=== PATIENT | female | born 1995 | race Caucasian/White ===

== ENCOUNTER 2023-02-26 23:23 | Inpatient (IN) ==
[2023-02-27] MEDS ORDERED: Lactated Ringers 1000 ml BAG 1,000 ML IV ONE (00:05)
[2023-02-27] MEDS ORDERED: Buffered Lidocaine 1% SYRIN 1 ml INTRADERM ONE (00:05)
[2023-02-27] MEDS ORDERED: Calcium Carb (TUMS) 500 mg CHEW TAB PO PRN (00:26)
[2023-02-27 00:47] LABS: Urine Benzodiazepine Screen None Detected (None Detect); Urine Cannabinoids Screen None Detected (None Detect); Urine Opiates Screen None Detected (None Detect)
[2023-02-27] MEDS ORDERED: Lactated Ringers 1000 ml BAG 1,000 ML IV SCH (01:00)
[2023-02-27] MEDS ORDERED: Glycerin ADULT 2.4 gm SUPP PR PRN (04:06)
[2023-02-27] MEDS ORDERED: Witch Hazel PAD JAR TOPICAL PRN (04:06)
[2023-02-27] MEDS ORDERED: Dibucaine 1% OINT 28.35 GM TUBE PR PRN (04:06)
[2023-02-27] MEDS ORDERED: RHO D Immune Globulin (HUMAN) 300 MCG = 1,500 I.U. INJ IM PRN (04:06)
[2023-02-27] MEDS ORDERED: Lidocaine 1% VIAL 10 MG/ML VIAL 30 ML ONE (06:32)
[2023-02-28 06:21] LABS: ABS Basophils 0.1 10^3/uL (0.0-0.1); ABS Eosinophils 0.1 10^3/uL (0.0-0.5); ABS Lymphocytes 1.9 10^3/uL (1.0-4.8); ABS Monocytes 0.6 10^3/uL (0.0-0.9); ABS Nucleated RBC 0.01 10^3/ul; Eosinophil % 1.3 %; Hematocrit 33.5 % (35-45); Lymphocyte % 19.9 %; Mean Corpuscular Hemoglobin 32.1 pg (27-33); Mean Corpuscular Hgb Conc 35.7 g/dL (31-36); Mean Corpuscular Volume 89.8 fL (80-97); Mean Platelet Volume 8.9 fL (7.5-11.2); Nucleated Red Blood Cells % 0.1 /100 WBC (0.0-0.4); Platelet Count 191 10^3/uL (150-450); Red Blood Count 3.73 10^6/uL (3.63-4.92); Red Cell Distribution Width 13.7 % (12-17); White Blood Count 9.7 10^3/uL (3.8-11.8)
[2023-03-01 13:12] VITALS: BP 137/87
== END 2023-03-01 14:28 | disposition home or self-care (01) | DRG 560 ==
LOC: MCHOBOUT 23:23 → MCHOB 02-27 00:03
PROVIDERS: ADMIT Midwife; ATTEND Midwife